=== PATIENT | male | born 1935 | race Caucasian/White ===

== ENCOUNTER 2021-11-22 22:03 | Inpatient (IN) | payer MEDICARE ==
[~2021-11-22] VITALS: Ht 193 cm; Wt 97.1 kg
[2021-11-22 22:43] LABS: BASO # 0.1 10^3/uL (0.0-0.2); BASO % 0.6 % (0.0-1.0); EOS % 0.4 % (0.0-3.0); HEMATOCRIT 34.7 % (42.0-52.0); HEMOGLOBIN 11.3 g/dl (13.5-17.5); LYMPH # 0.8 10^3/uL (1.5-5.0); LYMPH % 8.4 % (24.0-44.0); MEAN CORPUSCULAR HEMOGLOBIN 29.7 pg (27.0-33.0); MEAN CORPUSCULAR HGB CONC 32.6 g/dl (32.0-36.5); MEAN CORPUSCULAR VOLUME 91.1 fl (80.0-96.0); MONO # 0.8 10^3/uL (0.0-0.8); MONO % 8.5 % (2.0-8.0); NEUTROPHILS # 7.3 10^3/uL (1.5-8.5); NEUTROPHILS % 81.2 % (36.0-66.0); PLATELET COUNT, AUTOMATED 230 10^3/uL (150-450); RED BLOOD COUNT 3.81 10^6/uL (4.30-6.10)
[2021-11-22] MEDS ORDERED: ATEN100T PO (22:49)
[2021-11-22] MEDS ORDERED: ATOR40TA75 PO (22:49)
[2021-11-22] MEDS ORDERED: ALLO100T PO (22:49)
[2021-11-22] MEDS ORDERED: D3 +TAB PO (22:50)
[2021-11-22] MEDS ORDERED: B-12100021 PO (22:59)
[2021-11-22] MEDS ORDERED: FLOM0.4C39 PO (22:59)
[2021-11-22] MEDS ORDERED: FURO20TA2 PO (22:59)
[2021-11-22] MEDS ORDERED: ELIQ5TAB PO (22:59)
[2021-11-22] MEDS ORDERED: POTA10CA32 PO (22:59)
[2021-11-22] MEDS ORDERED: MAGN1TAB26 PO (22:59)
[2021-11-22] MEDS ORDERED: FINA5TAB2 PO (22:59)
[2021-11-22] MEDS ORDERED: OMEP10CASR PO (22:59)
[2021-11-22 23:23] LABS: ALBUMIN 2.6 GM/DL (3.2-5.2); BILIRUBIN,DIRECT 0.2 MG/DL (0.0-0.2); BILIRUBIN,TOTAL 1.3 MG/DL (0.2-1.0); CALCIUM LEVEL 8.4 MG/DL (8.8-10.2); CREATININE FOR GFR 1.64 MG/DL (0.70-1.30); FREE T4 1.32 NG/DL (0.76-1.46); GLOMERULAR FILTRATION RATE 42.5 (>35); POTASSIUM SERUM 5.6 MEQ/L (3.5-5.1); THYROID STIMULATING HORMONE 2.15 uIU/ML (0.358-3.740)
[2021-11-23] MEDS ORDERED: cefTRIAXone SOD 1 GM in D5W MINI-BAG PLUS 50 ML IV ONE (01:15)
[2021-11-23] MEDS ORDERED: AZITHROMYCIN INJ 500 MG, VIAL MATE ADAPTER 1 EACH in NS 250 ML IV ONE (01:15)
[2021-11-23] MEDS ORDERED: LEVALBUTEROL 1.25 MG/0.5 ML CONCENTRATE NEB NEB ONE ×2 (01:15→02:00)
[2021-11-23] MEDS ORDERED: MOM 30ML SUSPENSION UDC PO ONE (01:45)
[2021-11-23] MEDS ORDERED: methylPREDNISolone 125MG 2ML VIAL IV ONE (01:50)
[2021-11-23] MEDS ORDERED: LEVALBUTEROL 1.25 MG/0.5 ML CONCENTRATE NEB NEB SCH (02:00)
[2021-11-23] MEDS: IPRATROPIUM 0.02% SOLN 0.5MG 2.5ML NEB NEB SCH ×4 (02:00→20:03)
[2021-11-23 02:27] LABS: MAGNESIUM LEVEL 1.6 MG/DL (1.8-2.4)
[2021-11-23] MEDS ORDERED: FUROSEMIDE 40MG/4ML VIAL (J1940) IV ONE (04:00)
[2021-11-23] MEDS: MAG SULF 1GM/100ML (MAG RUN) 1 GM in IV 1 EA IV SCH ×2 (05:26→08:55)
[2021-11-23 05:50] VITALS: BP 110/63
[2021-11-23] MEDS ORDERED: LEVALBUTEROL 1.25 MG/0.5 ML CONCENTRATE NEB NEB PRN (07:20)
[2021-11-23 07:29] VITALS: BP 110/66
[2021-11-23 07:36] LABS: BASO % 0.3 % (0.0-1.0); EOS % 0.1 % (0.0-3.0); HEMATOCRIT 35.3 % (42.0-52.0); HEMOGLOBIN 11.3 g/dl (13.5-17.5); LYMPH # 0.6 10^3/uL (1.5-5.0); LYMPH % 8.2 % (24.0-44.0); MEAN CORPUSCULAR HEMOGLOBIN 29.4 pg (27.0-33.0); MEAN CORPUSCULAR VOLUME 91.7 fl (80.0-96.0); MONO # 0.1 10^3/uL (0.0-0.8); MONO % 1.6 % (2.0-8.0); NEUTROPHILS # 6.2 10^3/uL (1.5-8.5); NEUTROPHILS % 89.2 % (36.0-66.0); PLATELET COUNT, AUTOMATED 221 10^3/uL (150-450); RED BLOOD COUNT 3.85 10^6/uL (4.30-6.10); WHITE BLOOD COUNT 6.9 10^3/uL (4.0-10.0)
[2021-11-23 07:53] LABS: INR 1.81; PROTHROMBIN TIME 21.4 SECONDS (12.7-14.5)
[2021-11-23 07:55] LABS: PARTIAL THROMBOPLASTIN TIME 40.1 SECONDS (25.9-37.0)
[2021-11-23 08:03] LABS: CALCIUM LEVEL 8.9 MG/DL (8.8-10.2); CREATININE FOR GFR 1.29 MG/DL (0.70-1.30); GLOMERULAR FILTRATION RATE 56.1 (>35); POTASSIUM SERUM 4.4 MEQ/L (3.5-5.1)
[2021-11-23 08:04] LABS: PERCENT SATURATION 7.6 % (19.7-50.0)
[2021-11-23] MEDS: predniSONE 20 MG TAB PO SCH (08:20)
[2021-11-23] MEDS: LEVALBUTEROL 1.25 MG/0.5 ML CONCENTRATE NEB NEB SCH ×3 (09:19→20:03)
[2021-11-23] MEDS ORDERED: FURO40TA2 PO (09:20)
[2021-11-23] MEDS ORDERED: PROAAER10 INH (09:22)
[2021-11-23] MEDS ORDERED: SPIR1CAP INH (09:22)
[2021-11-23] MEDS ORDERED: HOME MED LIST COMPLETE! XX SCH (09:25)
[2021-11-23 11:43] VITALS: BP 101/72
[2021-11-23 16:00] VITALS: BP 109/69
[2021-11-23] MEDS ORDERED: D5W/0.9% SODIUM CHLORIDE 1,000 ML IV SCH (18:55)
[2021-11-23 19:17] VITALS: BP 106/56
[2021-11-23] MEDS: PIPERACILLIN/TAZOBACTAM SOD 4.5 GM in D5W MINI-BAG PLUS 50 ML IV SCH (20:00)
[2021-11-23] MEDS ORDERED: AZITHROMYCIN 250MG TABLET PO SCH (21:00)
[2021-11-24] VITALS (7 sets, daily range): BP systolic 90–133; BP diastolic 60–82
[2021-11-24] MEDS: LEVALBUTEROL 1.25 MG/0.5 ML CONCENTRATE NEB NEB SCH ×4 (00:36→19:19)
[2021-11-24] MEDS: IPRATROPIUM 0.02% SOLN 0.5MG 2.5ML NEB NEB SCH ×4 (00:37→19:19)
[2021-11-24] MEDS ORDERED: cefTRIAXone SOD 1 GM in D5W MINI-BAG PLUS 50 ML IV SCH (02:00)
[2021-11-24] MEDS ORDERED: METOPROLOL 5 MG/5 ML VIAL IV ONE (02:05)
[2021-11-24] MEDS: PIPERACILLIN/TAZOBACTAM SOD 4.5 GM in D5W MINI-BAG PLUS 50 ML IV SCH ×4 (02:17→20:40)
[2021-11-24 05:36] LABS: BASO % 0.1 % (0.0-1.0); HEMATOCRIT 32.3 % (42.0-52.0); HEMOGLOBIN 10.5 g/dl (13.5-17.5); LYMPH # 0.6 10^3/uL (1.5-5.0); LYMPH % 4.6 % (24.0-44.0); MEAN CORPUSCULAR HEMOGLOBIN 29.3 pg (27.0-33.0); MEAN CORPUSCULAR HGB CONC 32.5 g/dl (32.0-36.5); MEAN CORPUSCULAR VOLUME 90.2 fl (80.0-96.0); MONO # 0.6 10^3/uL (0.0-0.8); MONO % 4.5 % (2.0-8.0); NEUTROPHILS % 90.2 % (36.0-66.0); PLATELET COUNT, AUTOMATED 212 10^3/uL (150-450); RED BLOOD COUNT 3.58 10^6/uL (4.30-6.10); WHITE BLOOD COUNT 12.2 10^3/uL (4.0-10.0)
[2021-11-24 05:57] LABS: CALCIUM LEVEL 8.6 MG/DL (8.8-10.2); CREATININE FOR GFR 1.3 MG/DL (0.70-1.30); GLOMERULAR FILTRATION RATE 55.6 (>35); MAGNESIUM LEVEL 2.4 MG/DL (1.8-2.4); POTASSIUM SERUM 4.1 MEQ/L (3.5-5.1)
[2021-11-24] MEDS ORDERED: ALBUTEROL 90 MCG/ACT 8GM HFA INHALER INH PRN (07:50)
[2021-11-24] MEDS ORDERED: NS 500 ML IV ONE (07:55)
[2021-11-24] MEDS: TIOTROPIUM INHALER/CAPSULE (SPIRIVA) INH SCH (08:00)
[2021-11-24] MEDS: predniSONE 20 MG TAB PO SCH (08:47)
[2021-11-24] MEDS ORDERED: METOPROLOL TART 12.5 MG PER 1/2 TAB PO SCH (09:00)
[2021-11-24] MEDS ORDERED: FUROSEMIDE 40MG/4ML VIAL (J1940) IV SCH (09:00)
[2021-11-24] MEDS: APIXABAN 5 MG TAB (ELIQUIS) PO SCH ×2 (09:56→20:39)
[2021-11-24] MEDS: FINASTERIDE 5MG TAB PO SCH (09:56)
[2021-11-24] MEDS: allopurinoL 100 MG TAB PO SCH (09:57)
[2021-11-24] MEDS ORDERED: VARIBAR NECTAR 40% w/v 240ML SUSP BTL As Ordered ONE (11:50)
[2021-11-24] MEDS ORDERED: VARIBAR PUDDING 40% w/v 230ML TUBE As Ordered ONE (11:50)
[2021-11-24] MEDS ORDERED: E-Z-PAQUE 96% w/w SUSP 176GM BTL As Ordered ONE (11:51)
[2021-11-24] MEDS ORDERED: BARIUM SULFATE 700 MG TABLET (E-Z-DISK) As Ordered ONE (11:51)
[2021-11-24] MEDS: METOPROLOL TART 25 MG TABLET PO SCH ×2 (14:22→18:05)
[2021-11-24] MEDS ORDERED: METOPROLOL TART 25 MG TABLET PO SCH (18:00)
[2021-11-24] MEDS: ATORVASTATIN 20 MG TAB PO SCH (20:39)
[2021-11-25] VITALS: BP 112/69
[2021-11-25] MEDS: IPRATROPIUM 0.02% SOLN 0.5MG 2.5ML NEB NEB SCH ×4 (02:00→19:52)
[2021-11-25] MEDS: LEVALBUTEROL 1.25 MG/0.5 ML CONCENTRATE NEB NEB SCH ×4 (02:00→19:52)
[2021-11-25] MEDS: PIPERACILLIN/TAZOBACTAM SOD 4.5 GM in D5W MINI-BAG PLUS 50 ML IV SCH ×4 (02:27→20:38)
[2021-11-25 04:00] VITALS: BP 104/70
[2021-11-25] MEDS ORDERED: OLANZapine INTRAMUSCULAR 10MG VIAL IM ONE (05:35)
[2021-11-25] MEDS ORDERED: HALOPERIDOL 5MG/ML VIAL (J1630 PER 1) IM STA (05:53)
[2021-11-25] MEDS: METOPROLOL TART 25 MG TABLET PO SCH ×4 (06:00→20:37)
[2021-11-25] MEDS: METOPROLOL 5 MG/5 ML VIAL IV SCH ×3 (06:15→08:31)
[2021-11-25] MEDS: TIOTROPIUM INHALER/CAPSULE (SPIRIVA) INH SCH (07:00)
[2021-11-25 08:00] VITALS: BP 147/97
[2021-11-25] MEDS ORDERED: LORazepam 2 MG/ML VIAL IM STA (08:09)
[2021-11-25 08:58] LABS: EOS % 0.1 % (0.0-3.0); HEMATOCRIT 35.5 % (42.0-52.0); HEMOGLOBIN 11.4 g/dl (13.5-17.5); LYMPH # 0.7 10^3/uL (1.5-5.0); LYMPH % 5.3 % (24.0-44.0); MEAN CORPUSCULAR HEMOGLOBIN 29.4 pg (27.0-33.0); MEAN CORPUSCULAR HGB CONC 32.1 g/dl (32.0-36.5); MEAN CORPUSCULAR VOLUME 91.5 fl (80.0-96.0); MONO # 0.9 10^3/uL (0.0-0.8); NEUTROPHILS # 10.6 10^3/uL (1.5-8.5); NEUTROPHILS % 86.9 % (36.0-66.0); PLATELET COUNT, AUTOMATED 216 10^3/uL (150-450); RED BLOOD COUNT 3.88 10^6/uL (4.30-6.10); WHITE BLOOD COUNT 12.2 10^3/uL (4.0-10.0)
[2021-11-25] MEDS: predniSONE 20 MG TAB PO SCH (09:00)
[2021-11-25] MEDS: APIXABAN 5 MG TAB (ELIQUIS) PO SCH ×2 (09:00→20:38)
[2021-11-25] MEDS: FINASTERIDE 5MG TAB PO SCH (09:00)
[2021-11-25] MEDS: allopurinoL 100 MG TAB PO SCH (09:00)
[2021-11-25] MEDS: NS 1,000 ML IV SCH ×2 (09:15→17:21)
[2021-11-25 09:28] LABS: CALCIUM LEVEL 9.3 MG/DL (8.8-10.2); CREATININE FOR GFR 1.31 MG/DL (0.70-1.30); GLOMERULAR FILTRATION RATE 55.1 (>35); POTASSIUM SERUM 3.9 MEQ/L (3.5-5.1)
[2021-11-25 10:02] LABS: CK-MB VALUE MASS 2.9 NG/ML (<3.6); MB/CK RELATIVE INDEX 9.06 (< OR =4)
[2021-11-25] MEDS ORDERED: NS 1,000 ML IV ONE (11:25)
[2021-11-25 12:00] VITALS: BP 132/82
[2021-11-25] MEDS: DIGOXIN INJ 0.5 MG/2 ML AMP (J1160) IV SCH ×2 (12:04→17:21)
[2021-11-25] MEDS ORDERED: VANCOMYCIN HCL 1,000 MG, VIAL MATE ADAPTER 1 EACH in NS 250 ML IV SCH (15:20)
[2021-11-25] MEDS ORDERED: IRON SUCROSE 100MG 5ML VIAL (J1756 PER 1MG) IV ONE (15:25)
[2021-11-25 16:00] VITALS: BP 133/76
[2021-11-25] MEDS ORDERED: VANCOMYCIN HCL 1,000 MG, VIAL MATE ADAPTER 1 EACH in NS 250 ML IV ONE ×2 (16:00→17:00)
[2021-11-25] MEDS ORDERED: IRON SUCROSE 250 MG in NS 237.5 ML IV ONE (18:00)
[2021-11-25 20:00] VITALS: BP 126/66
[2021-11-25] MEDS: ATORVASTATIN 20 MG TAB PO SCH (20:38)
[2021-11-26] VITALS: BP 105/67
[2021-11-26] MEDS: DIGOXIN INJ 0.5 MG/2 ML AMP (J1160) IV SCH (00:19)
[2021-11-26] MEDS: LEVALBUTEROL 1.25 MG/0.5 ML CONCENTRATE NEB NEB SCH ×4 (01:46→19:32)
[2021-11-26] MEDS: IPRATROPIUM 0.02% SOLN 0.5MG 2.5ML NEB NEB SCH ×4 (01:46→19:31)
[2021-11-26] MEDS: PIPERACILLIN/TAZOBACTAM SOD 4.5 GM in D5W MINI-BAG PLUS 50 ML IV SCH ×4 (03:00→21:40)
[2021-11-26 04:00] VITALS: BP 110/67
[2021-11-26] MEDS: NS 1,000 ML IV SCH (04:38)
[2021-11-26] MEDS: METOPROLOL TART 25 MG TABLET PO SCH ×3 (06:05→21:41)
[2021-11-26 06:51] LABS: BASO % 0.2 % (0.0-1.0); EOS # 0.1 10^3/uL (0.0-0.5); EOS % 1.2 % (0.0-3.0); HEMATOCRIT 34.9 % (42.0-52.0); HEMOGLOBIN 11.1 g/dl (13.5-17.5); LYMPH # 0.9 10^3/uL (1.5-5.0); LYMPH % 8.6 % (24.0-44.0); MEAN CORPUSCULAR HEMOGLOBIN 29.8 pg (27.0-33.0); MEAN CORPUSCULAR HGB CONC 31.8 g/dl (32.0-36.5); MEAN CORPUSCULAR VOLUME 93.8 fl (80.0-96.0); MONO # 0.9 10^3/uL (0.0-0.8); MONO % 8.8 % (2.0-8.0); NEUTROPHILS # 8.2 10^3/uL (1.5-8.5); NEUTROPHILS % 80.6 % (36.0-66.0); PLATELET COUNT, AUTOMATED 206 10^3/uL (150-450); RED BLOOD COUNT 3.72 10^6/uL (4.30-6.10); WHITE BLOOD COUNT 10.2 10^3/uL (4.0-10.0)
[2021-11-26] MEDS ORDERED: VANCOMYCIN HCL 750 MG, VIAL MATE ADAPTER 1 EACH in NS 250 ML IV SCH (07:00)
[2021-11-26] MEDS: TIOTROPIUM INHALER/CAPSULE (SPIRIVA) INH SCH (07:06)
[2021-11-26 07:14] LABS: ALBUMIN 2.5 GM/DL (3.2-5.2); BILIRUBIN,TOTAL 0.8 MG/DL (0.2-1.0); CALCIUM LEVEL 8.8 MG/DL (8.8-10.2); CREATININE FOR GFR 1.24 MG/DL (0.70-1.30); GLOMERULAR FILTRATION RATE 58.7 (>35); MAGNESIUM LEVEL 2.3 MG/DL (1.8-2.4); POTASSIUM SERUM 4.4 MEQ/L (3.5-5.1); TOTAL PROTEIN 5.7 GM/DL (6.4-8.2); VANCOMYCIN LEVEL TROUGH 14.6 UG/ML (10.0-20.0)
[2021-11-26] MEDS ORDERED: VANCOMYCIN HCL 500 MG in D5W MINI-BAG PLUS 100 ML IV SCH (08:00)
[2021-11-26 08:18] VITALS: BP 106/62
[2021-11-26] MEDS: FINASTERIDE 5MG TAB PO SCH (09:09)
[2021-11-26] MEDS: predniSONE 20 MG TAB PO SCH (09:10)
[2021-11-26] MEDS: DIGOXIN 0.125 MG TAB PO SCH (09:12)
[2021-11-26] MEDS: allopurinoL 100 MG TAB PO SCH (09:12)
[2021-11-26] MEDS: APIXABAN 5 MG TAB (ELIQUIS) PO SCH ×2 (09:13→21:40)
[2021-11-26] MEDS: D5W/0.45% SODIUM CHLORIDE 1,000 ML IV SCH (09:20)
[2021-11-26 12:27] VITALS: BP 107/60
[2021-11-26 16:08] VITALS: BP 107/60
[2021-11-26 20:00] VITALS: BP 142/96
[2021-11-26] MEDS: ATORVASTATIN 20 MG TAB PO SCH (21:40)
[2021-11-26] MEDS: DOXYCYCLINE HYCLATE 100MG TABLET PO SCH (21:40)
[2021-11-27] MEDS: IPRATROPIUM 0.02% SOLN 0.5MG 2.5ML NEB NEB SCH ×4 (01:28→19:41)
[2021-11-27] MEDS: LEVALBUTEROL 1.25 MG/0.5 ML CONCENTRATE NEB NEB SCH ×4 (01:29→19:40)
[2021-11-27] MEDS: PIPERACILLIN/TAZOBACTAM SOD 4.5 GM in D5W MINI-BAG PLUS 50 ML IV SCH ×2 (02:12→09:24)
[2021-11-27] MEDS: D5W/0.45% SODIUM CHLORIDE 1,000 ML IV SCH (02:12)
[2021-11-27 04:00] VITALS: BP 114/64
[2021-11-27] MEDS: METOPROLOL TART 25 MG TABLET PO SCH (05:40)
[2021-11-27 05:46] LABS: BASO % 0.1 % (0.0-1.0); EOS % 0.1 % (0.0-3.0); HEMATOCRIT 33.3 % (42.0-52.0); HEMOGLOBIN 10.5 g/dl (13.5-17.5); LYMPH # 0.7 10^3/uL (1.5-5.0); LYMPH % 7.8 % (24.0-44.0); MEAN CORPUSCULAR HEMOGLOBIN 29.4 pg (27.0-33.0); MEAN CORPUSCULAR HGB CONC 31.5 g/dl (32.0-36.5); MEAN CORPUSCULAR VOLUME 93.3 fl (80.0-96.0); MONO # 0.5 10^3/uL (0.0-0.8); MONO % 5.9 % (2.0-8.0); NEUTROPHILS # 7.2 10^3/uL (1.5-8.5); NEUTROPHILS % 85.1 % (36.0-66.0); PLATELET COUNT, AUTOMATED 189 10^3/uL (150-450); RED BLOOD COUNT 3.57 10^6/uL (4.30-6.10); WHITE BLOOD COUNT 8.4 10^3/uL (4.0-10.0)
[2021-11-27 06:30] LABS: ALBUMIN 2.5 GM/DL (3.2-5.2); BILIRUBIN,TOTAL 0.9 MG/DL (0.2-1.0); CALCIUM LEVEL 8.4 MG/DL (8.8-10.2); CREATININE FOR GFR 1.24 MG/DL (0.70-1.30); DIGOXIN LEVEL 1.1 NG/ML (0.5-2.0); GLOMERULAR FILTRATION RATE 58.7 (>35); MAGNESIUM LEVEL 2.2 MG/DL (1.8-2.4); TOTAL PROTEIN 5.3 GM/DL (6.4-8.2)
[2021-11-27] MEDS: TIOTROPIUM INHALER/CAPSULE (SPIRIVA) INH SCH (07:16)
[2021-11-27 07:53] VITALS: BP 121/72
[2021-11-27] MEDS: DOXYCYCLINE HYCLATE 100MG TABLET PO SCH ×2 (09:22→19:55)
[2021-11-27] MEDS: DIGOXIN 0.125 MG TAB PO SCH (09:23)
[2021-11-27] MEDS: FINASTERIDE 5MG TAB PO SCH (09:23)
[2021-11-27] MEDS: allopurinoL 100 MG TAB PO SCH (09:24)
[2021-11-27] MEDS: predniSONE 20 MG TAB PO SCH (09:24)
[2021-11-27] MEDS: APIXABAN 5 MG TAB (ELIQUIS) PO SCH ×2 (09:24→19:56)
[2021-11-27 11:42] VITALS: BP 127/72
[2021-11-27] MEDS ORDERED: atenoloL 50 MG TAB PO ONE (12:00)
[2021-11-27] MEDS: AUGMENTIN 875 MG TAB PO SCH ×2 (14:35→19:54)
[2021-11-27] MEDS: TAMSULOSIN 0.4 MG CAP PO SCH (15:50)
[2021-11-27] MEDS: FUROSEMIDE 40 MG TAB PO SCH (15:51)
[2021-11-27 16:40] VITALS: BP 133/89
[2021-11-27] MEDS: ATORVASTATIN 20 MG TAB PO SCH (19:54)
[2021-11-27] MEDS: QUEtiapine FUMARATE 25 MG TAB PO SCH (19:55)
[2021-11-27 20:00] VITALS: BP 130/84
[2021-11-28] MEDS: IPRATROPIUM 0.02% SOLN 0.5MG 2.5ML NEB NEB SCH ×4 (01:08→19:42)
[2021-11-28] MEDS: LEVALBUTEROL 1.25 MG/0.5 ML CONCENTRATE NEB NEB SCH ×4 (01:09→19:42)
[2021-11-28 04:00] VITALS: BP 127/93
[2021-11-28 07:24] LABS: BASO % 0.2 % (0.0-1.0); EOS % 0.1 % (0.0-3.0); HEMATOCRIT 35.7 % (42.0-52.0); HEMOGLOBIN 11.3 g/dl (13.5-17.5); LYMPH # 1.1 10^3/uL (1.5-5.0); LYMPH % 12.7 % (24.0-44.0); MEAN CORPUSCULAR HGB CONC 31.7 g/dl (32.0-36.5); MEAN CORPUSCULAR VOLUME 91.8 fl (80.0-96.0); MONO # 0.6 10^3/uL (0.0-0.8); MONO % 6.4 % (2.0-8.0); NEUTROPHILS # 6.8 10^3/uL (1.5-8.5); NEUTROPHILS % 79.2 % (36.0-66.0); PLATELET COUNT, AUTOMATED 216 10^3/uL (150-450); RED BLOOD COUNT 3.89 10^6/uL (4.30-6.10); WHITE BLOOD COUNT 8.6 10^3/uL (4.0-10.0)
[2021-11-28] MEDS: TIOTROPIUM INHALER/CAPSULE (SPIRIVA) INH SCH (07:35)
[2021-11-28 07:48] LABS: ALBUMIN 2.6 GM/DL (3.2-5.2); ALT/SGPT 18 U/L (12-78); BILIRUBIN,TOTAL 0.7 MG/DL (0.2-1.0); BLOOD UREA NITROGEN 17 MG/DL (7-18); CALCIUM LEVEL 9.1 MG/DL (8.8-10.2); CARBON DIOXIDE LEVEL 30 MEQ/L (21-32); CHLORIDE LEVEL 108 MEQ/L (98-107); CREATININE FOR GFR 1.18 MG/DL (0.70-1.30); GLOMERULAR FILTRATION RATE > 60.0 (>35); GLUCOSE, FASTING 105 MG/DL (70-100); MAGNESIUM LEVEL 2.2 MG/DL (1.8-2.4); POTASSIUM SERUM 3.8 MEQ/L (3.5-5.1); SODIUM LEVEL 146 MEQ/L (136-145); TOTAL PROTEIN 5.9 GM/DL (6.4-8.2)
[2021-11-28 08:29] VITALS: BP 116/78
[2021-11-28] MEDS: AUGMENTIN 875 MG TAB PO SCH ×2 (09:09→21:07)
[2021-11-28] MEDS: DOXYCYCLINE HYCLATE 100MG TABLET PO SCH ×2 (09:10→21:07)
[2021-11-28] MEDS: TAMSULOSIN 0.4 MG CAP PO SCH (09:10)
[2021-11-28] MEDS: predniSONE 20 MG TAB PO SCH (09:10)
[2021-11-28] MEDS: APIXABAN 5 MG TAB (ELIQUIS) PO SCH ×2 (09:10→21:08)
[2021-11-28] MEDS: DIGOXIN 0.125 MG TAB PO SCH (09:10)
[2021-11-28] MEDS: FINASTERIDE 5MG TAB PO SCH (09:11)
[2021-11-28] MEDS: FUROSEMIDE 40 MG TAB PO SCH (09:12)
[2021-11-28] MEDS: allopurinoL 100 MG TAB PO SCH (09:12)
[2021-11-28] MEDS: atenoloL 50 MG TAB PO SCH (09:13)
[2021-11-28 20:24] VITALS: BP 122/66
[2021-11-28] MEDS: QUEtiapine FUMARATE 25 MG TAB PO SCH (21:07)
[2021-11-28] MEDS: ATORVASTATIN 20 MG TAB PO SCH (21:07)
[2021-11-28 22:00] VITALS: BP 126/75
[2021-11-29 06:00] VITALS: BP 123/75
[2021-11-29] MEDS: IPRATROPIUM 0.02% SOLN 0.5MG 2.5ML NEB NEB SCH ×3 (07:06→19:24)
[2021-11-29] MEDS: LEVALBUTEROL 1.25 MG/0.5 ML CONCENTRATE NEB NEB SCH ×3 (07:06→19:25)
[2021-11-29] MEDS: TIOTROPIUM INHALER/CAPSULE (SPIRIVA) INH SCH (07:07)
[2021-11-29 07:47] LABS: BASO % 0.3 % (0.0-1.0); HEMATOCRIT 38.2 % (42.0-52.0); HEMOGLOBIN 12.1 g/dl (13.5-17.5); LYMPH # 1.8 10^3/uL (1.5-5.0); LYMPH % 17.7 % (24.0-44.0); MEAN CORPUSCULAR HEMOGLOBIN 29.2 pg (27.0-33.0); MEAN CORPUSCULAR HGB CONC 31.7 g/dl (32.0-36.5); MEAN CORPUSCULAR VOLUME 92.3 fl (80.0-96.0); MONO # 0.7 10^3/uL (0.0-0.8); MONO % 6.8 % (2.0-8.0); NEUTROPHILS # 7.6 10^3/uL (1.5-8.5); NEUTROPHILS % 73.6 % (36.0-66.0); PLATELET COUNT, AUTOMATED 202 10^3/uL (150-450); RED BLOOD COUNT 4.14 10^6/uL (4.30-6.10); WHITE BLOOD COUNT 10.3 10^3/uL (4.0-10.0)
[2021-11-29 08:19] LABS: ALBUMIN 2.7 GM/DL (3.2-5.2); ALT/SGPT 20 U/L (12-78); BILIRUBIN,TOTAL 0.7 MG/DL (0.2-1.0); BLOOD UREA NITROGEN 22 MG/DL (7-18); CALCIUM LEVEL 9.6 MG/DL (8.8-10.2); CARBON DIOXIDE LEVEL 29 MEQ/L (21-32); CHLORIDE LEVEL 107 MEQ/L (98-107); CREATININE FOR GFR 1.16 MG/DL (0.70-1.30); GLOMERULAR FILTRATION RATE > 60.0 (>35); GLUCOSE, FASTING 97 MG/DL (70-100); MAGNESIUM LEVEL 2.3 MG/DL (1.8-2.4); POTASSIUM SERUM 3.7 MEQ/L (3.5-5.1); SODIUM LEVEL 143 MEQ/L (136-145); TOTAL PROTEIN 6.2 GM/DL (6.4-8.2)
[2021-11-29] MEDS: DOXYCYCLINE HYCLATE 100MG TABLET PO SCH ×2 (08:54→20:03)
[2021-11-29] MEDS: predniSONE 20 MG TAB PO SCH (08:55)
[2021-11-29] MEDS: APIXABAN 5 MG TAB (ELIQUIS) PO SCH ×2 (08:56→20:03)
[2021-11-29] MEDS: AUGMENTIN 875 MG TAB PO SCH ×2 (08:56→20:04)
[2021-11-29] MEDS: allopurinoL 100 MG TAB PO SCH (08:56)
[2021-11-29] MEDS: TAMSULOSIN 0.4 MG CAP PO SCH (08:56)
[2021-11-29] MEDS: DIGOXIN 0.125 MG TAB PO SCH (08:57)
[2021-11-29] MEDS: atenoloL 50 MG TAB PO SCH (08:58)
[2021-11-29] MEDS: FUROSEMIDE 40 MG TAB PO SCH (08:59)
[2021-11-29] MEDS: FINASTERIDE 5MG TAB PO SCH (08:59)
[2021-11-29] MEDS: ATORVASTATIN 20 MG TAB PO SCH (20:03)
[2021-11-29] MEDS: QUEtiapine FUMARATE 25 MG TAB PO SCH (20:04)
[2021-11-29 20:21] VITALS: BP 118/69
[2021-11-30] MEDS: LEVALBUTEROL 1.25 MG/0.5 ML CONCENTRATE NEB NEB SCH ×4 (02:40→19:14)
[2021-11-30] MEDS: IPRATROPIUM 0.02% SOLN 0.5MG 2.5ML NEB NEB SCH ×4 (02:40→19:14)
[2021-11-30 05:59] VITALS: BP 115/69
[2021-11-30] MEDS: TIOTROPIUM INHALER/CAPSULE (SPIRIVA) INH SCH (07:26)
[2021-11-30 07:43] LABS: BASO % 0.3 % (0.0-1.0); EOS % 0.1 % (0.0-3.0); HEMATOCRIT 39.6 % (42.0-52.0); HEMOGLOBIN 12.6 g/dl (13.5-17.5); LYMPH # 1.3 10^3/uL (1.5-5.0); LYMPH % 13.2 % (24.0-44.0); MEAN CORPUSCULAR HEMOGLOBIN 29.5 pg (27.0-33.0); MEAN CORPUSCULAR HGB CONC 31.8 g/dl (32.0-36.5); MEAN CORPUSCULAR VOLUME 92.7 fl (80.0-96.0); MONO # 0.7 10^3/uL (0.0-0.8); MONO % 6.5 % (2.0-8.0); NEUTROPHILS # 7.8 10^3/uL (1.5-8.5); NEUTROPHILS % 77.8 % (36.0-66.0); PLATELET COUNT, AUTOMATED 231 10^3/uL (150-450); RED BLOOD COUNT 4.27 10^6/uL (4.30-6.10); WHITE BLOOD COUNT 10.1 10^3/uL (4.0-10.0)
[2021-11-30 08:24] LABS: ALBUMIN 2.7 GM/DL (3.2-5.2); BILIRUBIN,TOTAL 0.8 MG/DL (0.2-1.0); CALCIUM LEVEL 9.7 MG/DL (8.8-10.2); CREATININE FOR GFR 1.35 MG/DL (0.70-1.30); GLOMERULAR FILTRATION RATE 53.2 (>35); MAGNESIUM LEVEL 2.3 MG/DL (1.8-2.4); POTASSIUM SERUM 4.6 MEQ/L (3.5-5.1); TOTAL PROTEIN 6.2 GM/DL (6.4-8.2)
[2021-11-30] MEDS: AUGMENTIN 875 MG TAB PO SCH ×2 (08:41→20:29)
[2021-11-30] MEDS: DOXYCYCLINE HYCLATE 100MG TABLET PO SCH ×2 (08:42→20:29)
[2021-11-30] MEDS: predniSONE 20 MG TAB PO SCH (08:42)
[2021-11-30] MEDS: APIXABAN 5 MG TAB (ELIQUIS) PO SCH ×2 (08:43→20:29)
[2021-11-30] MEDS: atenoloL 50 MG TAB PO SCH (08:43)
[2021-11-30] MEDS: DIGOXIN 0.125 MG TAB PO SCH (08:44)
[2021-11-30] MEDS: TAMSULOSIN 0.4 MG CAP PO SCH (08:45)
[2021-11-30] MEDS: FUROSEMIDE 40 MG TAB PO SCH (08:45)
[2021-11-30] MEDS: FINASTERIDE 5MG TAB PO SCH (08:45)
[2021-11-30] MEDS: allopurinoL 100 MG TAB PO SCH (08:45)
[2021-11-30] MEDS: ATORVASTATIN 20 MG TAB PO SCH (20:29)
[2021-11-30] MEDS: QUEtiapine FUMARATE 25 MG TAB PO SCH (20:29)
[2021-12-01] MEDS: IPRATROPIUM 0.02% SOLN 0.5MG 2.5ML NEB NEB SCH ×2 (01:26→07:28)
[2021-12-01] MEDS: LEVALBUTEROL 1.25 MG/0.5 ML CONCENTRATE NEB NEB SCH ×2 (01:26→07:28)
[2021-12-01 06:13] LABS: BASO % 0.3 % (0.0-1.0); HEMATOCRIT 37.8 % (42.0-52.0); HEMOGLOBIN 12.4 g/dl (13.5-17.5); LYMPH # 1.4 10^3/uL (1.5-5.0); LYMPH % 13.7 % (24.0-44.0); MEAN CORPUSCULAR HGB CONC 32.8 g/dl (32.0-36.5); MEAN CORPUSCULAR VOLUME 91.5 fl (80.0-96.0); MONO # 0.8 10^3/uL (0.0-0.8); MONO % 7.7 % (2.0-8.0); NEUTROPHILS # 7.6 10^3/uL (1.5-8.5); NEUTROPHILS % 75.9 % (36.0-66.0); PLATELET COUNT, AUTOMATED 205 10^3/uL (150-450); RED BLOOD COUNT 4.13 10^6/uL (4.30-6.10); WHITE BLOOD COUNT 10.1 10^3/uL (4.0-10.0)
[2021-12-01 06:22] VITALS: BP 117/58
[2021-12-01 06:58] LABS: ALBUMIN 2.6 GM/DL (3.2-5.2); ALT/SGPT 27 U/L (12-78); BILIRUBIN,TOTAL 0.8 MG/DL (0.2-1.0); BLOOD UREA NITROGEN 24 MG/DL (7-18); CALCIUM LEVEL 9.3 MG/DL (8.8-10.2); CARBON DIOXIDE LEVEL 29 MEQ/L (21-32); CHLORIDE LEVEL 106 MEQ/L (98-107); CREATININE FOR GFR 1.16 MG/DL (0.70-1.30); GLOMERULAR FILTRATION RATE > 60.0 (>35); GLUCOSE, FASTING 103 MG/DL (70-100); MAGNESIUM LEVEL 2.1 MG/DL (1.8-2.4); POTASSIUM SERUM 3.8 MEQ/L (3.5-5.1); SODIUM LEVEL 143 MEQ/L (136-145); TOTAL PROTEIN 5.6 GM/DL (6.4-8.2)
[2021-12-01] MEDS: TIOTROPIUM INHALER/CAPSULE (SPIRIVA) INH SCH (07:28)
[2021-12-01] MEDS: predniSONE 20 MG TAB PO SCH (09:15)
[2021-12-01] MEDS: AUGMENTIN 875 MG TAB PO SCH ×2 (09:15→20:16)
[2021-12-01] MEDS: FINASTERIDE 5MG TAB PO SCH (09:15)
[2021-12-01] MEDS: TAMSULOSIN 0.4 MG CAP PO SCH (09:15)
[2021-12-01] MEDS: FUROSEMIDE 40 MG TAB PO SCH (09:15)
[2021-12-01] MEDS: APIXABAN 5 MG TAB (ELIQUIS) PO SCH ×2 (09:15→20:16)
[2021-12-01] MEDS: DOXYCYCLINE HYCLATE 100MG TABLET PO SCH ×2 (09:19→20:16)
[2021-12-01] MEDS: allopurinoL 100 MG TAB PO SCH (09:19)
[2021-12-01] MEDS: atenoloL 50 MG TAB PO SCH (09:19)
[2021-12-01] MEDS: DIGOXIN 0.125 MG TAB PO SCH (09:20)
[2021-12-01 13:12] LABS: BODY FLUID CULTURE Not indicated. (.); LEGIONELLA ANTIGEN URINE Negative (Negative); ORGANISM ID Not indicated. (.); SPECIMEN SOURCE Urine (.); URINE STREP PNEUMONIAE ANTIGEN Negative (Negative)
[2021-12-01] MEDS: LEVALBUTEROL 1.25 MG/0.5 ML CONCENTRATE NEB INH SCH ×2 (13:29→19:33)
[2021-12-01 14:00] VITALS: BP 121/71
[2021-12-01] MEDS: QUEtiapine FUMARATE 25 MG TAB PO SCH (20:16)
[2021-12-01] MEDS: ATORVASTATIN 20 MG TAB PO SCH (20:16)
[2021-12-02] MEDS: LEVALBUTEROL 1.25 MG/0.5 ML CONCENTRATE NEB INH SCH ×4 (01:17→20:24)
[2021-12-02 06:00] VITALS: BP 120/72
[2021-12-02 07:05] LABS: BASO # 0.1 10^3/uL (0.0-0.2); BASO % 0.5 % (0.0-1.0); EOS % 0.1 % (0.0-3.0); HEMATOCRIT 42.4 % (42.0-52.0); HEMOGLOBIN 13.6 g/dl (13.5-17.5); LYMPH # 1.9 10^3/uL (1.5-5.0); LYMPH % 16.4 % (24.0-44.0); MEAN CORPUSCULAR HEMOGLOBIN 29.9 pg (27.0-33.0); MEAN CORPUSCULAR HGB CONC 32.1 g/dl (32.0-36.5); MEAN CORPUSCULAR VOLUME 93.2 fl (80.0-96.0); MONO # 0.9 10^3/uL (0.0-0.8); MONO % 7.6 % (2.0-8.0); NEUTROPHILS # 8.6 10^3/uL (1.5-8.5); NEUTROPHILS % 73.3 % (36.0-66.0); PLATELET COUNT, AUTOMATED 220 10^3/uL (150-450); RED BLOOD COUNT 4.55 10^6/uL (4.30-6.10); WHITE BLOOD COUNT 11.7 10^3/uL (4.0-10.0)
[2021-12-02] MEDS: TIOTROPIUM INHALER/CAPSULE (SPIRIVA) INH SCH (07:23)
[2021-12-02 07:30] LABS: ALBUMIN 2.9 GM/DL (3.2-5.2); BILIRUBIN,TOTAL 1.1 MG/DL (0.2-1.0); CALCIUM LEVEL 9.4 MG/DL (8.8-10.2); CREATININE FOR GFR 1.23 MG/DL (0.70-1.30); GLOMERULAR FILTRATION RATE 59.3 (>35); MAGNESIUM LEVEL 2.1 MG/DL (1.8-2.4); POTASSIUM SERUM 3.5 MEQ/L (3.5-5.1); TOTAL PROTEIN 6.3 GM/DL (6.4-8.2)
[2021-12-02] MEDS: FINASTERIDE 5MG TAB PO SCH (08:55)
[2021-12-02] MEDS: DIGOXIN 0.125 MG TAB PO SCH (08:55)
[2021-12-02] MEDS: FUROSEMIDE 40 MG TAB PO SCH (08:56)
[2021-12-02] MEDS: APIXABAN 5 MG TAB (ELIQUIS) PO SCH ×2 (08:56→20:03)
[2021-12-02] MEDS: atenoloL 50 MG TAB PO SCH (08:56)
[2021-12-02] MEDS: allopurinoL 100 MG TAB PO SCH (08:56)
[2021-12-02] MEDS: DOXYCYCLINE HYCLATE 100MG TABLET PO SCH ×2 (08:56→20:02)
[2021-12-02] MEDS: predniSONE 10 MG TAB PO SCH (08:57)
[2021-12-02] MEDS: TAMSULOSIN 0.4 MG CAP PO SCH (08:57)
[2021-12-02] MEDS: QUEtiapine FUMARATE 25 MG TAB PO SCH (20:02)
[2021-12-02] MEDS: ATORVASTATIN 20 MG TAB PO SCH (20:03)
[2021-12-03] MEDS: LEVALBUTEROL 1.25 MG/0.5 ML CONCENTRATE NEB INH SCH ×4 (01:00→20:25)
[2021-12-03 05:19] VITALS: BP 98/58
[2021-12-03] MEDS: TIOTROPIUM INHALER/CAPSULE (SPIRIVA) INH SCH (07:18)
[2021-12-03] MEDS: FUROSEMIDE 40 MG TAB PO SCH (09:00)
[2021-12-03] MEDS: atenoloL 50 MG TAB PO SCH (09:00)
[2021-12-03] MEDS: DIGOXIN 0.125 MG TAB PO SCH (09:23)
[2021-12-03] MEDS: DOXYCYCLINE HYCLATE 100MG TABLET PO SCH ×2 (09:23→20:08)
[2021-12-03] MEDS: APIXABAN 5 MG TAB (ELIQUIS) PO SCH ×2 (09:23→20:08)
[2021-12-03] MEDS: TAMSULOSIN 0.4 MG CAP PO SCH (09:27)
[2021-12-03] MEDS: allopurinoL 100 MG TAB PO SCH (09:27)
[2021-12-03] MEDS: predniSONE 10 MG TAB PO SCH (09:27)
[2021-12-03] MEDS: FINASTERIDE 5MG TAB PO SCH (09:28)
[2021-12-03] MEDS: ATORVASTATIN 20 MG TAB PO SCH (20:08)
[2021-12-03] MEDS: QUEtiapine FUMARATE 25 MG TAB PO SCH (20:08)
[2021-12-04] MEDS: LEVALBUTEROL 1.25 MG/0.5 ML CONCENTRATE NEB INH SCH ×4 (03:44→20:26)
[2021-12-04 06:00] VITALS: BP 97/60
[2021-12-04] MEDS: TIOTROPIUM INHALER/CAPSULE (SPIRIVA) INH SCH (06:22)
[2021-12-04] MEDS: predniSONE 10 MG TAB PO SCH (08:39)
[2021-12-04] MEDS: FINASTERIDE 5MG TAB PO SCH (08:39)
[2021-12-04] MEDS: TAMSULOSIN 0.4 MG CAP PO SCH (08:39)
[2021-12-04] MEDS: DIGOXIN 0.125 MG TAB PO SCH (08:40)
[2021-12-04] MEDS: allopurinoL 100 MG TAB PO SCH (08:40)
[2021-12-04] MEDS: FUROSEMIDE 40 MG TAB PO SCH (08:41)
[2021-12-04] MEDS: APIXABAN 5 MG TAB (ELIQUIS) PO SCH ×2 (08:42→20:11)
[2021-12-04] MEDS: atenoloL 50 MG TAB PO SCH (08:44)
[2021-12-04] MEDS: QUEtiapine FUMARATE 25 MG TAB PO SCH (20:11)
[2021-12-04] MEDS: ATORVASTATIN 20 MG TAB PO SCH (20:11)
[2021-12-04] MEDS: ACETAMINOPHEN TAB 650MG DOSE (2X325MG) PO PRN (20:12)
[2021-12-05] MEDS: LEVALBUTEROL 1.25 MG/0.5 ML CONCENTRATE NEB INH SCH ×4 (01:27→20:00)
[2021-12-05 06:00] VITALS: BP 108/62
[2021-12-05] MEDS: TIOTROPIUM INHALER/CAPSULE (SPIRIVA) INH SCH (07:28)
[2021-12-05 08:00] VITALS: BP 110/70
[2021-12-05] MEDS: allopurinoL 100 MG TAB PO SCH (09:50)
[2021-12-05] MEDS: FINASTERIDE 5MG TAB PO SCH (09:50)
[2021-12-05] MEDS: predniSONE 10 MG TAB PO SCH (09:51)
[2021-12-05] MEDS: atenoloL 50 MG TAB PO SCH (09:52)
[2021-12-05] MEDS: TAMSULOSIN 0.4 MG CAP PO SCH (09:53)
[2021-12-05] MEDS: DIGOXIN 0.125 MG TAB PO SCH (09:53)
[2021-12-05] MEDS: FUROSEMIDE 40 MG TAB PO SCH (09:54)
[2021-12-05] MEDS: APIXABAN 5 MG TAB (ELIQUIS) PO SCH ×2 (09:56→20:02)
[2021-12-05 14:25] VITALS: BP 106/63
[2021-12-05] MEDS: ACETAMINOPHEN TAB 650MG DOSE (2X325MG) PO PRN (20:02)
[2021-12-05] MEDS: QUEtiapine FUMARATE 25 MG TAB PO SCH (20:02)
[2021-12-05] MEDS: ATORVASTATIN 20 MG TAB PO SCH (20:02)
[2021-12-06] MEDS: LEVALBUTEROL 1.25 MG/0.5 ML CONCENTRATE NEB INH SCH ×3 (02:00→15:05)
[2021-12-06 06:00] VITALS: BP 107/61
[2021-12-06] MEDS: TIOTROPIUM INHALER/CAPSULE (SPIRIVA) INH SCH (07:40)
[2021-12-06] MEDS: allopurinoL 100 MG TAB PO SCH (08:50)
[2021-12-06] MEDS: FINASTERIDE 5MG TAB PO SCH (08:50)
[2021-12-06] MEDS: TAMSULOSIN 0.4 MG CAP PO SCH (08:50)
[2021-12-06] MEDS: predniSONE 20 MG TAB PO SCH (08:51)
[2021-12-06] MEDS: APIXABAN 5 MG TAB (ELIQUIS) PO SCH ×2 (08:51→20:26)
[2021-12-06] MEDS: DIGOXIN 0.125 MG TAB PO SCH (08:52)
[2021-12-06] MEDS: atenoloL 50 MG TAB PO SCH (08:52)
[2021-12-06] MEDS: FUROSEMIDE 40 MG TAB PO SCH (08:52)
[2021-12-06 13:10] VITALS: BP 109/57
[2021-12-06] MEDS: ACETAMINOPHEN TAB 650MG DOSE (2X325MG) PO PRN (20:26)
[2021-12-06] MEDS: ATORVASTATIN 20 MG TAB PO SCH (20:26)
[2021-12-06] MEDS: QUEtiapine FUMARATE 25 MG TAB PO SCH (20:26)
[2021-12-07 06:00] VITALS: BP 106/58
[2021-12-07] MEDS: TIOTROPIUM INHALER/CAPSULE (SPIRIVA) INH SCH (08:04)
[2021-12-07] MEDS: atenoloL 25 MG TAB PO SCH (09:00)
[2021-12-07] MEDS: predniSONE 20 MG TAB PO SCH (09:44)
[2021-12-07] MEDS: allopurinoL 100 MG TAB PO SCH (09:44)
[2021-12-07] MEDS: APIXABAN 5 MG TAB (ELIQUIS) PO SCH ×2 (09:44→20:57)
[2021-12-07] MEDS: TAMSULOSIN 0.4 MG CAP PO SCH (09:44)
[2021-12-07] MEDS: FUROSEMIDE 20 MG TAB PO SCH (09:45)
[2021-12-07] MEDS: FINASTERIDE 5MG TAB PO SCH (09:46)
[2021-12-07] MEDS: DIGOXIN 0.125 MG TAB PO SCH (09:46)
[2021-12-07] MEDS: ATORVASTATIN 20 MG TAB PO SCH (20:57)
[2021-12-07] MEDS: ACETAMINOPHEN TAB 650MG DOSE (2X325MG) PO PRN (20:57)
[2021-12-07] MEDS: QUEtiapine FUMARATE 25 MG TAB PO SCH (20:57)
[2021-12-07] MEDS ORDERED: RAMELTEON 8 MG TAB (ROZEREM) PO PRN (21:15)
[2021-12-08] MEDS: TIOTROPIUM INHALER/CAPSULE (SPIRIVA) INH SCH (07:13)
[2021-12-08] MEDS: atenoloL 25 MG TAB PO SCH (09:00)
[2021-12-08] MEDS: allopurinoL 100 MG TAB PO SCH (09:00)
[2021-12-08] MEDS: predniSONE 20 MG TAB PO SCH (09:00)
[2021-12-08] MEDS: TAMSULOSIN 0.4 MG CAP PO SCH (09:00)
[2021-12-08] MEDS: FINASTERIDE 5MG TAB PO SCH (09:00)
[2021-12-08] MEDS: APIXABAN 5 MG TAB (ELIQUIS) PO SCH ×2 (09:00→20:30)
[2021-12-08] MEDS: FUROSEMIDE 20 MG TAB PO SCH (09:00)
[2021-12-08] MEDS: DIGOXIN 0.125 MG TAB PO SCH (09:00)
[2021-12-08] MEDS: ATORVASTATIN 20 MG TAB PO SCH (20:30)
[2021-12-08] MEDS: QUEtiapine FUMARATE 25 MG TAB PO SCH (20:30)
[2021-12-09 05:45] VITALS: BP 107/64
[2021-12-09] MEDS: TIOTROPIUM INHALER/CAPSULE (SPIRIVA) INH SCH (07:21)
[2021-12-09] MEDS: FINASTERIDE 5MG TAB PO SCH (08:04)
[2021-12-09] MEDS: APIXABAN 5 MG TAB (ELIQUIS) PO SCH (08:04)
[2021-12-09] MEDS: DIGOXIN 0.125 MG TAB PO SCH (08:05)
[2021-12-09] MEDS: FUROSEMIDE 20 MG TAB PO SCH (08:05)
[2021-12-09] MEDS: allopurinoL 100 MG TAB PO SCH (08:05)
[2021-12-09] MEDS: TAMSULOSIN 0.4 MG CAP PO SCH (08:05)
[2021-12-09 08:06] VITALS: BP 107/64
[2021-12-09] MEDS: atenoloL 25 MG TAB PO SCH (08:06)
[2021-12-09] MEDS ORDERED: predniSONE 10 MG TAB PO SCH (09:00)
[2021-12-09] MEDS ORDERED: ATEN25TA PO (09:37)
[2021-12-09] MEDS ORDERED: FURO20TA2 PO (09:37)
[2021-12-09] MEDS ORDERED: DIGO0.123 PO (09:37)
[2021-12-09] MEDS ORDERED: PRED10TA2 PO (09:37)
[2021-12-09] MEDS ORDERED: QUET1TAB17 PO (09:37)
[2021-12-09 10:06] VITALS: BP 106/61
== END 2021-12-09 10:25 | DRG 177 ==
LOC: M ED 22:03 → M ED INP 11-23 02:52 → ENRESERV 11-23 04:58 → M PCU 11-23 05:50 → M MS5PR 11-29 01:57
PROVIDERS: ADMIT Family Medicine; ATTEND Family Medicine
DX: J69.0 Pneumonitis due to inhalation of food and vomit (principal); J96.01 Acute respiratory failure with hypoxia; A41.9 Sepsis, unspecified organism; G93.41 Metabolic encephalopathy; N17.9 Acute kidney failure, unspecified; R29.6 Repeated falls; I50.9 Heart failure, unspecified; I11.0 Hypertensive heart disease with heart failure; D50.9 Iron deficiency anemia, unspecified; I48.91 Unspecified atrial fibrillation; H35.30 Unspecified macular degeneration; R91.8 Other nonspecific abnormal finding of lung field; N40.0 Benign prostatic hyperplasia without lower urinary tract symptoms; Z79.899 Other long term (current) drug therapy; Z91.030 Bee allergy status; Z79.01 Long term (current) use of anticoagulants

== ENCOUNTER → 2022-01-11 | Outpatient (REF) | payer MEDICARE ==
[~2022-01-11] MED LIST: ALLO100T PO; ATEN100T PO; ATEN25TA PO; ATOR40TA75 PO; B-12100021 PO; D3 +TAB PO; DIGO0.123 PO; ELIQ5TAB PO; FINA5TAB2 PO; FLOM0.4C39 PO; FURO20TA2 PO; FURO40TA2 PO; MAGN1TAB26 PO; OMEP10CASR PO; POTA10CA32 PO; PRED10TA2 PO; PROAAER10 INH; QUET1TAB17 PO; SPIR1CAP INH
[2022-01-11 08:07] LABS: ALBUMIN 2.6 GM/DL (3.2-5.2); ALT/SGPT 9 U/L (12-78); BLOOD UREA NITROGEN 24 MG/DL (7-18); CALCIUM LEVEL 7.9 MG/DL (8.8-10.2); CARBON DIOXIDE LEVEL 29 MEQ/L (21-32); CHLORIDE LEVEL 106 MEQ/L (98-107); CREATININE FOR GFR 1.17 MG/DL (0.70-1.30); GLOMERULAR FILTRATION RATE > 60.0 (>35); GLUCOSE, FASTING 96 MG/DL (70-100); POTASSIUM SERUM 3.6 MEQ/L (3.5-5.1); SODIUM LEVEL 141 MEQ/L (136-145); TOTAL PROTEIN 5.5 GM/DL (6.4-8.2)
== END ==
LOC: SKLAB4 10:45
PROVIDERS: ATTEND Nurse Practitioner Family
DX: I95.9 Hypotension, unspecified (principal)

== ENCOUNTER → 2022-01-26 | Outpatient (REF) | payer MEDICARE ==
[2022-01-26 10:34] LABS: HEMATOCRIT 42.3 % (42.0-52.0); HEMOGLOBIN 13.4 g/dl (13.5-17.5); MEAN CORPUSCULAR HEMOGLOBIN 29.5 pg (27.0-33.0); MEAN CORPUSCULAR HGB CONC 31.7 g/dl (32.0-36.5); MEAN CORPUSCULAR VOLUME 93.2 fl (80.0-96.0); PLATELET COUNT, AUTOMATED 197 10^3/uL (150-450); RED BLOOD COUNT 4.54 10^6/uL (4.30-6.10); WHITE BLOOD COUNT 8.9 10^3/uL (4.0-10.0)
[2022-01-26 11:45] LABS: ALBUMIN 2.8 GM/DL (3.2-5.2); CALCIUM LEVEL 8.8 MG/DL (8.8-10.2); CREATININE FOR GFR 1.41 MG/DL (0.70-1.30); DIGOXIN LEVEL 1.1 NG/ML (0.5-2.0); GLOMERULAR FILTRATION RATE 50.6 (>35)
== END ==
LOC: SKLAB4 13:49
PROVIDERS: ATTEND Nurse Practitioner
DX: R53.83 Other fatigue (principal)

== ENCOUNTER → 2022-01-26 | Outpatient (REF) | payer MEDICARE | LOC: SKLAB4 10:00 | PROVIDERS: ATTEND Nurse Practitioner Family | DX: I48.91 Unspecified atrial fibrillation (principal) ==

== ENCOUNTER → 2022-01-27 | Outpatient (REF) | payer MEDICARE ==
[~2022-01-27] MED LIST changes: +ACET1TAB55 PO; +ACET650T15 PO; +ATEN50TA2 PO; +ATIV1TAB10 PO; +ATOR1TAB21 PO; +DULC10SU2 PR; +FLEEENE12 PR; +HYOS125TA PO; +MAGN400T35 PO; +MILKSUS3 PO; +MORP1SOL5 PO; +SPIR-10 PO
[2022-01-27 17:09] LABS: HEMATOCRIT 38.8 % (42.0-52.0); HEMOGLOBIN 12.4 g/dl (13.5-17.5); MEAN CORPUSCULAR VOLUME 93.7 fl (80.0-96.0); PLATELET COUNT, AUTOMATED 210 10^3/uL (150-450); RED BLOOD COUNT 4.14 10^6/uL (4.30-6.10); WHITE BLOOD COUNT 14.2 10^3/uL (4.0-10.0)
== END ==
LOC: SKLAB4 15:51
PROVIDERS: ATTEND Nurse Practitioner
DX: R31.9 Hematuria, unspecified (principal)

== ENCOUNTER → 2022-01-27 | Outpatient (REF) | payer MEDICARE ==
[2022-01-27 07:08] LABS: HEMOGLOBIN 12.4 g/dl (13.5-17.5); MEAN CORPUSCULAR HGB CONC 31.8 g/dl (32.0-36.5); MEAN CORPUSCULAR VOLUME 94.2 fl (80.0-96.0); PLATELET COUNT, AUTOMATED 204 10^3/uL (150-450); RED BLOOD COUNT 4.14 10^6/uL (4.30-6.10)
[2022-01-27 07:32] LABS: ALBUMIN 2.6 GM/DL (3.2-5.2); ALT/SGPT 12 U/L (12-78); BILIRUBIN,TOTAL 1.1 MG/DL (0.2-1.0); BLOOD UREA NITROGEN 28 MG/DL (7-18); CALCIUM LEVEL 8.2 MG/DL (8.8-10.2); CARBON DIOXIDE LEVEL 25 MEQ/L (21-32); CHLORIDE LEVEL 112 MEQ/L (98-107); CREATININE FOR GFR 1.04 MG/DL (0.70-1.30); GLOMERULAR FILTRATION RATE > 60.0 (>35); GLUCOSE, FASTING 104 MG/DL (70-100); POTASSIUM SERUM 3.8 MEQ/L (3.5-5.1); SODIUM LEVEL 141 MEQ/L (136-145); TOTAL PROTEIN 5.6 GM/DL (6.4-8.2)
[2022-01-27 12:11] LABS: APPEARANCE, URINE MANUAL CLOUDY (CLEAR); COLOR, URINE MANUAL RED (YELLOW); GLUCOSE, URINE (UA) MANUAL OBSCURED mg/dL (NEGATIVE); PROTEIN, URINE MANUAL OBSCURED mg/dL (NEGATIVE)
[2022-01-27 12:12] LABS: BILIRUBIN, URINE MANUAL OBSCURED (NEGATIVE); BLOOD URINE MANUAL POSITIVE (NEGATIVE); KETONE, URINE MANUAL OBSCURED mg/dL (NEGATIVE); LEUKOCYTE ESTERASE, URINE MAN OBSCURED (NEGATIVE); NITRITE, URINE MANUAL OBSCURED (NEGATIVE); UROBILINOGEN, URINE MANUAL OBSCURED mg/dl (NORMAL)
[2022-01-27 12:13] LABS: BACTERIA, URINE NONE SEEN; HYALINE CAST, URINE NONE SEEN /lpf (0-1); RBC, URINE TNTC /hpf (0-3); SQUAMOUS EPITHELIAL CELL URINE NONE SEEN /hpf (SMALL AMT)
== END ==
LOC: SKLAB4 07:00
PROVIDERS: ATTEND Nurse Practitioner
DX: E86.0 Dehydration (principal)

== ENCOUNTER → 2022-01-28 | Outpatient (REF) | payer MEDICARE ==
[2022-01-28 09:09] LABS: HEMOGLOBIN 11.7 g/dl (13.5-17.5); MEAN CORPUSCULAR HEMOGLOBIN 29.5 pg (27.0-33.0); MEAN CORPUSCULAR HGB CONC 31.6 g/dl (32.0-36.5); MEAN CORPUSCULAR VOLUME 93.2 fl (80.0-96.0); PLATELET COUNT, AUTOMATED 218 10^3/uL (150-450); RED BLOOD COUNT 3.97 10^6/uL (4.30-6.10); WHITE BLOOD COUNT 15.1 10^3/uL (4.0-10.0)
[2022-01-28 09:39] LABS: ALBUMIN 2.6 GM/DL (3.2-5.2); ALT/SGPT 10 U/L (12-78); BLOOD UREA NITROGEN 31 MG/DL (7-18); CALCIUM LEVEL 8.6 MG/DL (8.8-10.2); CARBON DIOXIDE LEVEL 23 MEQ/L (21-32); CHLORIDE LEVEL 111 MEQ/L (98-107); CHOLESTEROL LEVEL 77 MG/DL (<200); CHOLESTEROL RISK RATIO 2.081 (<5); CREATININE FOR GFR 1.16 MG/DL (0.70-1.30); GLOMERULAR FILTRATION RATE > 60.0 (>35); GLUCOSE, FASTING 146 MG/DL (70-100); HDL CHOLESTEROL 37 MG/DL (>40); LDL CHOLESTEROL 22 MG/DL (<100); NON-HDL-C 40 MG/DL; POTASSIUM SERUM 4.2 MEQ/L (3.5-5.1); SODIUM LEVEL 143 MEQ/L (136-145); TOTAL PROTEIN 5.6 GM/DL (6.4-8.2); TRIGLYCERIDES LEVEL 90 MG/DL (<150)
== END ==
LOC: SKLAB4 07:00
PROVIDERS: ATTEND Internal Medicine
DX: E78.5 Hyperlipidemia, unspecified (principal); N17.9 Acute kidney failure, unspecified

== ENCOUNTER → 2022-01-29 | Outpatient (REF) | payer MEDICARE | LOC: SKLAB4 07:00 | PROVIDERS: ATTEND Nurse Practitioner Family | DX: I50.9 Heart failure, unspecified (principal); Z53.9 Procedure and treatment not carried out, unspecified reason ==